=== PATIENT | male | born 1995 | race Caucasian/White ===

== ENCOUNTER 2018-08-28 13:09 | Emergency (ER) | payer BC ==
[~2018-08-28] VITALS: Ht 195.6 cm; Wt 115.0 kg
[2018-08-28 13:46] VITALS: BP 128/79
--- NOTE | 2018-08-28 14:01 | NUR ---
PT TAKEN FOR RAD
[2018-08-28 15:38] LABS: RAPID INFLUENZA A Negative (Negative); RAPID INFLUENZA B Negative (Negative)
--- NOTE | 2018-08-28 15:42 | NUR ---
ALL RESULTS BACK AT THIS TIME
== END 2018-08-28 15:53 | disposition home or self-care (01) ==
LOC: ED 15:35
DX: J06.9 Acute upper respiratory infection, unspecified (principal)
CPT/HCPCS: 71046; 87400; 99284